=== PATIENT | male | born 1940 | race Caucasian/White ===

== ENCOUNTER 2016-10-31 12:48 | Day surgery (SDC) | payer MEDICARE ==
[~2016-10-31] VITALS: Ht 177.8 cm; Wt 85.4 kg
[~2016-10-31 12:48] MED LIST: ASPI325T32 PO; ATRV10T PO; FLUD0.1T PO; FLUO20CA25 PO; KLO1T PO; MIDO5TAB PO; MULT-321 PO; Sodium Chloride LOK Flush 10 mL Syringe IV PRN; VENL37.57 PO; fentaNYL-PF 50 mCg/mL 2 mL Inj IVPUSH PRN
[2016-10-31 13:33] VITALS: BP 132/82; PULSE 81; RESP 16; O2SAT 97
[2016-10-31] MEDS ORDERED: 0.9% Sodium Chloride 1,000 ML IV ONE (13:40)
[2016-10-31] MEDS ORDERED: SERT100T9 PO (13:43)
--- NOTE | 2016-10-31 14:34 | PCM.ENDCOL ---
Colonoscopy Date of Service: Oct 31, 2016 Physician Donaldo Hay MD Pre Procedure Diagnosis: Blood in the stools Post Procedure Dx & Findings: Polyp hemorrhoids Procedure Colonoscopy PROCEDURE IN DETAIL: Prep adequate Withdrawal time 14 minutes After unremarkable rectal examination the Olympus video colonoscope was inserted patient's anal canal and was advanced to cecum. Landmarks were identified including the ileocecal valve and appendiceal orifice. Scope further as the terminal ileum. Advanced 8 cm. Visualized terminal ileum showed normal villous structures without any ulcer mass erosions. Scope was withdrawn systematically. Visualized colonic mucosa showed healthy shiny mucosa with normal healthy-appearing vasculature. In the rectum, there was a 3 mm polyp which was removed completely using cold snare. In the rectum retroflexion was done which showed hemorrhoids. Anal canal was inspected carefully on the way out and hemorrhoids noted. Impression Polyp 1 status is complete removal Hemorrhoids Recommendation Repeat colonoscopy in 5 years Presedation Assessment Risks and Benefits Informed consent was obtained from the patient after all risks and benefits including but not limited to drug reaction, infection, pain, bleeding, perforation, as well as alternatives were discussed. Patient monitoring Continuous pulse oximetry, cardiac monitoring, blood pressure monitoring, IV access, and oxygen at 2L per nasal cannula. Periprocedural Fentanyl: Fentanyl 75mcg Incrementally Midazolam: Midazolam 3mg Incrementally Complications There were no periprocedural complications identified. Post Procedure Plan Post Procedure Recommendations 1. Restrict activities today. 2. Resume normal activities in the morning. 3. Resume medications. 4. Patient informed of normal post procedure side effects as bloating, drowsiness, blood streaking in the stool. 5. average risk CRCS. If colon polyps come back as: -Hyperplastic- can repeat colonoscopy in 10 years -Tubular adenoma- repeat colonoscopy in 5 years -Tubulovillous/villous adenoma- repeat colonoscopy in 3 years -If any dysplasia- return to clinic as soon as possible 6. Please don't hesitate to call me with any questions. Donaldo Hay MD Oct 31, 2016 14:34
[2016-10-31 14:38] VITALS: BP 116/52; PULSE 74; RESP 16; O2SAT 96
[2016-10-31 14:48] VITALS: BP 112/51; PULSE 74; RESP 16; O2SAT 94
[2016-10-31 14:58] VITALS: BP 110/50; PULSE 75; RESP 16; O2SAT 94
--- NOTE | 2016-11-02 16:38 | PATH ---
SURGICAL PATHOLOGY Attending Physician:Donaldo Hay M.D. CASE STATUS: Signed Out PATIENT NAME: RAH SCHWAB PID: [id number] : 1940 DATE COLLECTED:10/31/2016 00:00 SPECIMEN: Rectum, Biopsy CLINICAL HISTORY: 1. 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 The fragment is totally submitted in one cassette. ([id number]) MICRO DESCRIPTION: See diagnosis. ICD-9 CODES: CPT CODES: 1: 32595 Electronically Signed Out Estelita Erickson MD [facility] [address], [place] [address] Technical component performed at [facility], [address] [place] [address] Ave[address], [place], [address]
== END 2016-10-31 23:59 | disposition home or self-care (01) ==
LOC: END 12:48
PROVIDERS: ATTEND Internal Medicine
DX: D12.8 Benign neoplasm of rectum (principal); K64.8 Other hemorrhoids; I48.0 Paroxysmal atrial fibrillation; I95.1 Orthostatic hypotension; G20 Parkinson's disease; F32.9 Major depressive disorder, single episode, unspecified; E78.5 Hyperlipidemia, unspecified; F10.10 Alcohol abuse, uncomplicated; Z79.82 Long term (current) use of aspirin
CPT/HCPCS: 45385; 99153; G0500; J7030